=== PATIENT | male | born 2005 | race Two or more races ===

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

== ENCOUNTER 2025-03-24 01:08 | Emergency (ER) | payer BC, MEDICAID ==
[2025-03-24 01:33] VITALS: BP 121/75; PULSE 80
== END 2025-03-24 02:15 | disposition home or self-care (01) ==
LOC: FB.ED 01:08
DX: J02.9 Acute pharyngitis, unspecified (principal); Z79.899 Other long term (current) drug therapy
CPT/HCPCS: 87428-QW; 87651; 99283